=== PATIENT | female | born 1970 | race Caucasian/White ===

== ENCOUNTER → 2020-09-03 11:35 | Outpatient (CLI) | payer BC, SELFPAY ==
--- NOTE | ~2020-09-03 | XR_ITS ---
EXAMINATION: XR chest 2V EXAM DATE: 09/03/2020 11:57 INDICATION: Right lat rib pain x couple months after starting exercise. TECHNIQUE: Frontal and lateral projections of the chest obtained and reviewed. There is no prior almas dy for comparison. FINDINGS: The lungs are clear. There are no pleural effusions. The cardiomediastinal silhouette is within normal limits. There is no pneumothorax suspected. The bones and soft tissues are unremarkab le. IMPRESSION: No acute cardiopulmonary findings. Reviewed, dictated and finalized at location A. ORMAN
== END ==
PROVIDERS: PCP Internal Medicine; Visit Provider Clinical Nurse Specialist
DX: R07.81 Pleurodynia (principal)
CPT/HCPCS: 71046

== ENCOUNTER 2020-09-23 08:45 | Outpatient (CLI) | payer BC, SELFPAY ==
--- NOTE | ~2020-09-23 | US_ITS ---
US soft tissue upper back 09/23/2020 09:15 Indication: Right-sided rib pain for 2 months Procedure: Limited ultrasound of the right lateral chest Comparison: No prior studies for comparison. Findings: Normal heterogeneous soft tissues without evidence for mass. No fluid collections. Impression: 1: Normal limited ultrasound of the right chest soft tissues in the area of palpable concern. No disc rete mass or fluid collection. Reviewed, dictated and finalized at location B. RIOR DESIGN CONSULTANT Impression: 1: Normal limited ultrasound of the right chest soft tissues in the area of pal pable concern. No discrete mass or fluid collection.
== END 2020-09-23 08:46 | disposition home or self-care (01) ==
PROVIDERS: PCP Internal Medicine; Visit Provider Clinical Nurse Specialist
DX: R07.81 Pleurodynia (principal)
CPT/HCPCS: 76604

== ENCOUNTER → 2020-10-06 13:19 | Outpatient (CLI) | payer BC, SELFPAY ==
--- NOTE | ~2020-10-06 | CT_ITS ---
EXAMINATION: CT abdomen pelvis wo con DATE: 10/06/2020 13:42 INDICATION: Right lower rib pain. Pleurodynia. TECHNIQUE: Computed tomography (CT) of the abdomen and pelvis was performed without intravenous contr ast. Automated exposure control and iterative reconstruction technique were employed. The dose-length product was 1204.17 mGy-cm. COMPARISON: None. FINDINGS: The visualized portions of the lung bases demonstrate minimal atelectasis. No pleural effus ion. The heart size is normal. No pericardial effusion. There is a large sliding hiatal hernia. There is an 8 mm cyst in the liver. The gallbladder, spleen, pancreas, adrenal glands, and kidneys are nor mal. There is no urolithiasis. There are no dilated loops of bowel. The appendix is not visualized. T here are no pathologically enlarged lymph nodes. There is a 10.7 x 6.4 cm cystic mass in the right ad nexa. There is no free intraperitoneal fluid. There is mild thoracic spondylosis and moderate lumbar spondylosis. The included portions of the ribs are normal. IMPRESSION: 1. 10.7 cm cystic mass in the right adnexa, likely benign. Pelvis ultrasound is recommended. 2. Large sliding hiatal hernia. Reviewed, dictated and finalized at location A. HIC PRE PRESS TRADES WORKER
== END ==
PROVIDERS: PCP Internal Medicine; Visit Provider Clinical Nurse Specialist
DX: R07.81 Pleurodynia (principal); R19.09 Other intra-abdominal and pelvic swelling, mass and lump; K44.9 Diaphragmatic hernia without obstruction or gangrene
CPT/HCPCS: 74176

== ENCOUNTER → 2020-10-12 12:46 | Outpatient (CLI) | payer BC, SELFPAY ==
--- NOTE | ~2020-10-12 | US_ITS ---
EXAMINATION: US pelvic complete w TV DATE: 10/12/2020 13:16 INDICATION: Right adnexal cyst seen on CT. Comparison:No prior studies for comparison. TECHNIQUE: Multiple transabdominal and endovaginal sonographic images of the pelvis performed. FINDINGS: The uterus measures 6 x 4.1 x 3.5 cm. There are multiple small masses of the uterus measuri ng up to 1.9 cm, consistent with fibroids. There is a 1.7 cm nabothian cysts. The endometrial complex measures 3 mm. The right ovary measures 11.2 x 6.8 x 9.5 cm. There are right adnexal cysts which extend across the m idline, largest measuring 8.2 x 7.5 x 6.1 cm. The left ovary is not visualized. No free fluid in the pelvis. IMPRESSION: 1. Multiple large cysts centered in the right adnexa extending across the midline. Largest discrete c yst measures 8.2 x 7.5 x 6.1 cm. Differential diagnosis includes physiologic cysts, paraovarian/parat ubal cyst, peritoneal inclusion cyst, serous cystadenoma and cystadenocarcinoma. Reviewed, dictated and finalized at location A. ING MACHINE TENDER IMPRESSION: 1. Multiple large cysts centered in the right adnexa extending across the midli ne. Largest discrete cyst measures 8.2 x 7.5 x 6.1 cm. Differential diagnosis i ncludes physiologic cysts, paraovarian/paratubal cyst, peritoneal inclusion cys t, serous cystadenoma and cystadenocarcinoma.
== END ==
PROVIDERS: PCP Internal Medicine; Visit Provider Clinical Nurse Specialist
DX: N85.8 Other specified noninflammatory disorders of uterus (principal)
CPT/HCPCS: 76830; 76856

== ENCOUNTER 2020-11-16 00:25 | Outpatient (CLI) | payer BC, SELFPAY ==
[2020-11-16 18:26] LABS: SARS-CoV-2 RNA PCR Negative
== END 2020-11-16 00:26 | disposition home or self-care (01) ==
LOC: ANHCOVIDDT 00:25
PROVIDERS: PCP Internal Medicine; Visit Provider Student in an Organized Health Care Education/Training Program
DX: Z01.812 Encounter for preprocedural laboratory examination (principal); Z20.822 Contact with and (suspected) exposure to COVID-19
CPT/HCPCS: C9803; U0003; U0005

== ENCOUNTER 2020-11-16 09:43 | Outpatient (CLI) | payer BC, SELFPAY ==
--- NOTE | 2020-11-16 09:44 | ECG_ITS ---
Measurements Intervals Lucas Rate: 71 P: -21 AL: 157 QRS: 11 QRSD: 88 T: 10 QT: 420 QTc: 456 Interpretive Statements SINUS RHYTHM DELAYED PRECORDIAL R/S TRANSITION BORDERLINE ST-T WAVE ABNORMALITY- ANTEROLAT/INF LEADS BASELINE ARTIFACT- I, II, III, AVR, AVL, V6 BORDERLINE ECG Electronically Signed On 11-16-2020 10:18:16 [employer] by Austin Gonzales D.O.
[2020-11-16 10:13] LABS: Hematocrit 35.4 % (37.0-47.0); Hemoglobin 12.2 g/dL (12.0-15.0); Mean Corpuscular HGB Conc 34.5 g/dl (32-36); Mean Corpuscular Hemoglobin 30.1 pg (26-34); Mean Corpuscular Volume 87.4 fl (80-100); Mean Platelet Volume 10.6 fl (7.4-10.4); Platelet Count Result 328 k/mm3 (150-375); Red Blood Count 4.05 M/mm3 (4.2-5.4); Red Cell Distribution Width 12.7 % (11.5-14.5); White Blood Count 8.7 K/mm3 (4.5-10.0)
[2020-11-16 10:24] LABS: Anion Gap 7 mmol/L (8-16); Blood Urea Nitrogen 12 mg/dL (7-17); Calcium 8.3 mg/dL (8.4-10.2); Carbon Dioxide 28 mmol/L (22-30); Chloride 100 mmol/L (98-107); Estimated Glomerular Filt Rate > 60; Glucose 109 mg/dL (65-105); Potassium 3.4 mmol/L (3.4-5.0); Sodium 135 mmol/L (137-145)
== END 2020-11-16 09:44 | disposition home or self-care (01) ==
LOC: ANHSURGERY 09:44
PROVIDERS: Anesthesiology; PCP Internal Medicine; Visit Provider Student in an Organized Health Care Education/Training Program
DX: N85.2 Hypertrophy of uterus (principal); I10 Essential (primary) hypertension; Z01.818 Encounter for other preprocedural examination; R94.31 Abnormal electrocardiogram [ECG] [EKG]
CPT/HCPCS: 36415; 80048; 85027; 93005

== ENCOUNTER 2020-11-19 00:31 | Day surgery (SDC) | payer BC, SELFPAY ==
[2020-11-13 14:39] VITALS: BMI 40.3
--- NOTE | 2020-11-18 13:40 | P.PNAN_ITS ---
Anes - Initial Pre Proc Eval Procedure: Operation Date: 11/19/20 12:00 Proposed Procedures p Robotic Assisted Total Vaginal Hysterectomy, Left Salpingectomy, Right Oophorectomy - Mich Kaufman MD Date/Time: 11/18/20 13:40 Surgeon: Mich Kaufman MD Pre Op Diagnosis: enlarged uterus, fibroids, pain, rt ovarian cyst Patient Data Age: 50 Gender: F Height: 1.73 m Weight: 120.2 kg Allergies Allergy/AdvReac Type Severity Reaction Status Date / Time No Known Allergies Allergy Verified 11/19/20 10:07 Home Medications Medication Instructions Recorded Confirmed Type losartan 100 1 tablet PO DAILY #90 tablet 07/15/20 11/19/20 Rx mg-hydrochlorothiazide 25 mg tablet estradiol 1 mg-progesterone 100 mg 1 cap PO QPM 09/03/20 11/19/20 History capsule fluoxetine 20 mg capsule 20 mg PO DAILY #90 cap 10/09/20 11/19/20 Rx omeprazole 20 mg capsule,delayed 20 mg PO BID #180 cap 10/09/20 11/19/20 Rx release ibuprofen 600 mg PO TID 11/13/20 11/19/20 History Patient hx anesthesia problems: none Family hx anesthesia problems: none [facility] Past Medical History Medical History (Updated 11/18/20 @ 13:41 by Georgi Hansen MD) Anemia Depression Hypertension Morbid obesity with BMI of 40.0-44.9, adult Sleep apnea Uterine mass Surgical History Surgical History (Updated 11/21/19 @ 06:54 by Jaclyn Maldonado CMA) H/O eye surgery H/O tubal ligation 2004 History of endometrial ablation History of facial surgery Cheek surgery Family History Family History (Updated 11/20/19 @ 17:21 by Jaclyn Maldonado CMA) Father Malignant neoplasm of prostate Mother Carcinoma of colon Social History Social History Smoking status: Never smoker Alcohol intake: current Living arrangements: with family Gender identity (if verbalized by the patient): Female Spiritual care concerns: No Anes - Eval Final PreProcedure Day of Procedure 11/18/20 13:40 Patient weight: obese Heart: regular rate and rhythm Lungs: clear to auscultation and normal air movement Airway: Mallampati scale class II Neurological: alert and oriented Last oral intake: >/= 8 hours ASA classification: III Emergent: no Anesthetic plan: proceed Anesthesia type and monitoring: general ETT Informed Consent: The patient's anesthetic plan and its attendant risks and benefits were discussed with the patient/family/POA. Questions were solicited and answers provided to the satisfaction of the patient/family/POA.
[2020-11-19] VITALS (11 sets, daily range): BP systolic 141–174; BP diastolic 84–102; PULSE 70–92; RESP 10–20; TEMP 35.9–36.1; O2SAT 93–100; BMI 41.3
[2020-11-19] MEDS: ACETAMINOPHEN 500 MG TABLET 1000 MG PO (10:54)
[2020-11-19] MEDS: LACTATED RINGERS 1,000 ML 30 ML IV CONT ×3 (10:54→15:19)
[2020-11-19] MEDS: KETOROLAC 15 MG/ML VIAL (*BKC) IV PUSH (10:55)
[2020-11-19] MEDS: SCOPOLAMINE 1.5 MG PATCH TRANSDERM (11:01)
--- NOTE | 2020-11-19 11:26 | PM.IMHP ---
H&P: HPI History of Present Illness Date/Time: 11/19/20 11:26 Chief Complaint: pelvic pain ovarian cyst uterine fibroids Narrative: Lora Long is a 50 year old female who presents for robotic assisted TLH, left salpingectomy and RSO. Pt initially complained of right sided pelvic pain for 2-3 months. She attributed the pain to a pulled muscle from exercise. After several month without resolution, she presented to her PCP who ordered a CT scan. Imaging showed a large right ovarian cyst. Follow up pelvic US confirmed the cyst as well as uterine fibroids. pt has had an endometrial ablation in the past and denies any abnormal bleeding. Review of Systems Cardiovascular: Cardiovascular: Denies chest pain, Denies leg edema, Denies palpitations, Denies dyspnea and Denies dyspnea on exertion Respiratory: Respiratory: Denies cough, Denies dyspnea and Denies dyspnea on exertion Gastrointestinal: Gastrointestinal: Denies abdominal pain, Denies constipation, Denies diarrhea, Denies nausea and Denies vomiting Genitourinary: Genitourinary: Denies hematuria, Denies urinary frequency, Denies dysuria, Denies pelvic pain, Denies urinary incontinence and Denies vaginal discharge Neurologic: Reports system reviewed and no additional complaints, except as documented Psychiatric: Psychiatric: Reports no additional psychiatric complaints Endocrine: Endocrine: Denies palpitations PMFSH Past Medical History Medical History (Updated 11/19/20 @ 11:29 by Mich Kaufman MD) Anemia Depression Hypertension Morbid obesity with BMI of 40.0-44.9, adult Sleep apnea Uterine mass Surgical History Surgical History (Updated 11/21/19 @ 06:54 by Jaclyn Maldonado [facility]) H/O eye surgery H/O tubal ligation 2004 History of endometrial ablation History of facial surgery Cheek surgery Family History Family History (Updated 11/20/19 @ 17:21 by Jaclyn Maldonado CMA) Father Malignant neoplasm of prostate Mother Carcinoma of colon Social History Social History Smoking status: Never smoker Alcohol intake: current Living arrangements: with family Gender identity (if verbalized by the patient): Female Spiritual care concerns: No Meds Home Medications and Allergies Home Medications Medication Instructions Recorded Confirmed Type losartan 100 1 tablet PO DAILY #90 tablet 07/15/20 11/19/20 Rx mg-hydrochlorothiazide 25 mg tablet estradiol 1 mg-progesterone 100 mg 1 cap PO QPM 09/03/20 11/19/20 History capsule fluoxetine 20 mg capsule 20 mg PO DAILY #90 cap 10/09/20 11/19/20 Rx omeprazole 20 mg capsule,delayed 20 mg PO BID #180 cap 10/09/20 11/19/20 Rx release ibuprofen 600 mg PO TID 11/13/20 11/19/20 History Allergies Allergy/AdvReac Type Severity Reaction Status Date / Time No Known Allergies Allergy Verified 11/19/20 10:07 Vital Signs Vital Signs - 24 hr 11/19/20 11:04 Temperature 35.9 C L Pulse Rate 82 Respiratory Rate 20 Blood Pressure 141/98 H Pulse Oximetry 98 Exam Const: General: no acute distress Eyes: EOM: EOMs intact bilaterally Neck: Neck: supple Thyroid: thyroid normal Chest: Breast/axilla inspection: normal inspection of the breasts Breast/axilla palpation: normal palpation of the breasts, normal palpation of the axillae and no axillary lymphadenopathy Resp: Effort & Inspection: normal respiratory effort Auscultation: clear to auscultation bilaterally Cardio: Rate: regular rate Rhythm: regular rhythm GI: Inspection: non-distended GI Palp: Yes Soft to palpation, No Tenderness to palpation present (GI) and No Guarding due to palpation present (GI) Auscultation: normal bowel sounds : General: No bladder normal to palpation External Female Exam: normal external appearance Speculum Exam - Vagina: normal vaginal discharge and No vaginal bleeding Speculum Exam - Cervix: nontender Bimanual exam- vagina & uterus: No bladder normal to palpation and No Cervica
--- NOTE | 2020-11-19 11:32 | WPDHPUPDATE1 ---
History and Physical Update Update Date/Time: 11/19/20 11:32 History and Physical has been reviewed, including an updated exam of the patient. There are NO changes in the patient's condition. Risks, benefits, and alternatives have been discussed and questions answered. Patient agrees to proceed with procedure.
[2020-11-19] MEDS: ceFAZolin 3 GM/D5W 100 ML 100 ML IVPB (12:14)
[2020-11-19] MEDS: LIDO 1%/EPINEPHRINE 1:100,000 50 ML VIAL 30 ML INFILTRATE (13:12)
--- NOTE | 2020-11-19 13:54 | PM.PROC ---
Procedure Note - Detailed Date of procedure: 11/19/20 Pre-op diagnosis: enlarged uterus, fibroids, pain, rt ovarian cyst Procedure performed: Robotic assisted total laparoscopic hysterectomy,right salpingo-oophorectomy, left salpingectomy Description of procedure: PROCEDURE IN DETAIL: After the patient was appropriately consented she was taken to the operating room where she was transferred to the table in a dorsal supine position. General anesthesia was then induced with endotracheal intubation. The patient was transferred to a dorsal lithotomy position using adjustable yellow-fin stirrups. Her position was adjusted for appropriate support of her lower back and lower extremities. The patient was prepped and draped. A transurethral santos catheter was place. The cervix was sequentially dilated and a 6cm Cande II uterine manipulator placed in typical fashion about a 3.5 cm CISCO ring. Gloves were changed. After confirmation of a functioning orogastric tube, lidocaine was injected at Soriano's point in the LUQ and a 8 mm incision was made. A 5mm Optiview trocar was then inserted into the abdominal cavity under direct visualization and done so without complication. The abdomen was then insufflated with approximately 2-3L of CO2 establishing a pneumoperitoneum and the patient was placed in Trendelenburg position. Just above the umbilicus in the midline, a 8 mm incision made after injection of lidocaine and a 8 mm trocar advanced into the abdominal cavity under direct visualization without incident. We subsequently placed two robotic ports in a similar fashion, one in the left mid-quadrant and one in the right, 10cm lateral to the midline port. The robot was then docked. The Left round ligament was divided and the pararectal and paravesicle spaces developed, identifying the course of the ureter. The left fallopian tube was followed out to the fimbrae. The fallopian tube was then ligated along the inferior aspect of the mesosalpinx. The posterior aspect of the broad ligament was then skeletonized down to the level of the internal cervical os, mobilizing the ureter laterally. The bladder flap was then created sharply. The ipsilateral uterine artery was skeletonized, bipolar cauterized and transected. Attention was then turned to the right side. A large right ovarian cyst was noted and was positioned in the posterior cul de sac. This cyst was ruptured and the fluid was suctioned out. The fluid was clear. After deflating the cyts, the Right round ligament was divided and the pararectal and paravesicle spaces developed identifying the course of the ureter. The IP and ovarian vessels were identified and triple ligated away from the ureter. The broad ligament was further skeletonized down to the level of the internal cervical os, completing the bladder flap, and skeletonizing, ligating, and dividing the uterine artery on this side. We ensured the vaginal pneumo-occluder balloon was insufflated and made a circumferential colpotomy using monopolar current. The uterus, cervix, bilateral tubes and ovaries were then delivered transvaginally. I then re-approximated the colpotomy with a single interuppted 0-vicryl at the left apex and running #1 PDO Quill suture in 2 layers. Following this dissection, the abdomen and pelvis were copiously irrigated and all surgical sites found to be hemostatic. Skin sites were reapproximated with 4-0 Vicryl in a subcuticular fashion. Steri-Strips were placed. The patient tolerated the procedure well. Sponge, needle and instrument counts were correct x 2 and the patient was taken to recovery in stable condition. Ancef was given for antimicrobial prophylaxis. The patient had SCD's on for VTE prophylaxis during the entire procedure. Anesthesia: GETA Surgeon: Mich Kaufman MD Estimated blood loss (mL): 100 Drains: No Packing: No Pathology: yes (uterus, cervix, bilateral fallopian tubes, right Ovary ) Complications: No immediate complications Condition: stable
[2020-11-19] MEDS: fentaNYL CITRATE INJ (*CRX) 100 MCG/2 ML VIAL 25 MCG IV PUSH ×2 (15:34→15:39)
[2020-11-19] MEDS: ONDANSETRON INJ 4 MG/2 ML VIAL IV PUSH (16:13)
[2020-11-19] MEDS: HALOPERIDOL LACTATE 5 MG/ML VIAL 1 MG IV PUSH (16:44)
== END 2020-11-19 17:40 | disposition home or self-care (01) ==
PROVIDERS: PCP Internal Medicine; Visit Provider Student in an Organized Health Care Education/Training Program
PROC: (CPT 58571; principal; 2020-11-19 12:00)
DX: D25.9 Leiomyoma of uterus, unspecified (principal); N80.0 Endometriosis of uterus; N70.11 Chronic salpingitis; N73.6 Female pelvic peritoneal adhesions (postinfective); I10 Essential (primary) hypertension; G47.30 Sleep apnea, unspecified; D64.9 Anemia, unspecified; F32.9 Major depressive disorder, single episode, unspecified; E66.01 Morbid (severe) obesity due to excess calories; Z68.41 Body mass index [BMI] 40.0-44.9, adult
CPT/HCPCS: 58571; S2900; 36415; 80048; 85027; 86850; 86900; 86901; 88307; 93005; A9270; C9803; J0690; J1100; J1630; J1885; J2250; J2405; J2704; J3010; J7030; J7120; U0003; U0005

== ENCOUNTER 2020-12-12 11:03 | Emergency (ER) | payer BC, SELFPAY ==
[2020-12-12 11:15] VITALS: BP 147/99; PULSE 90; RESP 14; TEMP 36.9; O2SAT 99
--- NOTE | 2020-12-12 11:53 | ED.ABDPAIN ---
HPI - Abdominal Pain General Chief Complaint: Vaginal Bleeding Stated Complaint: vaginal bleeding, post hyst Time Seen by Provider: 12/12/20 11:25 Source: patient, RN notes reviewed and old records reviewed History of Present Illness HPI narrative: 50-year-old female presents to emergency department for vaginal bleeding. Patient states she woke up and noticed the blood on her sheets. Patient had a total hysterectomy late last month. She was seen by her STATEMENT REQUEST CLERK physician on Monday for similar vaginal bleeding. Reports some abdominal cramping. No nausea or vomiting. No urinary symptoms. No blood in stool. Related Data Home Medications Medication Instructions Recorded Confirmed ibuprofen 600 mg PO TID 11/13/20 11/19/20 conjugated estrogens [Premarin] mg 12/12/20 Allergies Allergy/AdvReac Type Severity Reaction Status Date / Time No Known Allergies Allergy Verified 12/12/20 11:23 Review of Systems Review of Systems: Narrative: CONSTITUTIONAL: Denies fever, chills, or sweats. EYES: Denies visual changes, redness, or discharge. ENT: Denies rhinorrhea, congestion, sore throat, or otalgia. CARDIOVASCULAR: Denies chest pain, palpitations, or edema. RESPIRATORY: Denies cough or dyspnea. GASTROINTESTINAL: Denies abdominal pain, nausea, vomiting, or diarrhea. GENITOURINARY: Denies dysuria or hematuria. SKIN: Denies rash or itching. MUSCULOSKELETAL: Denies back pain, joint pain, or myalgia. NEUROLOGIC: Denies headache, numbness, dizziness, or weakness. PSYCHIATRIC: Denies anxiety or depression. All systems reviewed & are unremarkable except as noted in HPI and below (ROS) [facility] Past Medical History Medical History Anemia Depression Hypertension Morbid obesity with BMI of 40.0-44.9, adult Sleep apnea Uterine mass Surgical History Surgical History H/O eye surgery H/O tubal ligation 2004 History of endometrial ablation History of facial surgery Cheek surgery Family History Family History Father Malignant neoplasm of prostate Mother Carcinoma of colon Social History Social History Smoking status: Never smoker Alcohol intake: current Gender identity (if verbalized by the patient): Female Spiritual care concerns: No Exam Narrative: Exam Narrative: GENERAL: Well-appearing, well-nourished, and in no acute distress. HEAD: Normocephalic, atraumatic. EYES: PERRLA and EOMI. ENT: Nares clear, no rhinorrhea or epistaxis. Mucous membranes moist. NECK: Supple. CHEST: Clear to auscultation. No respiratory distress. HEART: Regular rate and rhythm. No murmur heard. Normal peripheral pulses. ABDOMEN: Soft, nontender, nondistended, normal active bowel sounds. EXTREMITIES: Normal range of motion. No edema. : Pelvic exam showed dark red blood in vaginal vault, no active bleeding. SKIN: Warm, dry, no rash. NEURO: No focal deficits. Alert and oriented x3. PSYCH: Normal mood and affect. Course Course Emergency Course: 1400 -discussed case with physician on-call for Dr. Kaufman, follow-up on Monday at 8 AM in office. Counseled patient to return to emergency department at any time if she notes increased bleeding, worsening bleeding, or other concerns. Vital Signs Vital signs: Vital Signs Temperature 36.9 C 12/12/20 11:15 Pulse Rate 90 12/12/20 11:15 Respiratory Rate 14 12/12/20 11:15 Blood Pressure 147/99 H 12/12/20 11:15 Pulse Oximetry 99 12/12/20 11:15 Temperature 36.9 C 12/12/20 11:15 Pulse Rate 74 12/12/20 14:22 Respiratory Rate 18 12/12/20 14:22 Blood Pressure 148/92 H 12/12/20 14:22 Pulse Oximetry 96 12/12/20 14:22 MDM - Abdominal Pain Medical Records Attestation: I reviewed the patient's medical records. Lab Data Attestation: I reviewed the
[2020-12-12 12:02] LABS: Basophils Absolute Auto 0.1 K/mm3 (0.0-0.1); Basophils Percent Auto 0.8 % (0.2-1.2); Eosinophils Absolute Auto 1.5 K/mm3 (0-0.3); Eosinophils Percent Auto 14.2 % (0-4.4); Hemoglobin 12.4 g/dL (12.0-15.0); Immature Granulocyte Absolute 0.03 K/mm3 (0.00-0.031); Immature Granulocyte Percent A 0.3 % (0-0.5); Lymphocytes Absolute Auto 2.72 K/mm3 (0.9-3.2); Lymphocytes Percent Auto 26.7 % (18.3-44.2); Mean Corpuscular HGB Conc 33.5 g/dl (32-36); Mean Corpuscular Hemoglobin 29.2 pg (26-34); Mean Corpuscular Volume 87.1 fl (80-100); Mean Platelet Volume 9.9 fl (7.4-10.4); Monocytes Absolute Auto 0.6 K/mm3 (0.1-0.6); Monocytes Percent Auto 5.7 % (2.6-8.5); Neutrophils Absolute Auto 5.3 K/mm3 (1.3-6.7); Neutrophils Percent Auto 52.3 % (45.5-73.1); Platelet Count Result 333 k/mm3 (150-375); Red Blood Count 4.25 M/mm3 (4.2-5.4); Red Cell Distribution Width 12.9 % (11.5-14.5); White Blood Count 10.2 K/mm3 (4.5-10.0)
[2020-12-12] MEDS: KETOROLAC 15 MG/ML VIAL (*BKC) IV PUSH (12:02)
[2020-12-12 12:15] LABS: Alanine Aminotransferase 20 U/L (4-35); Albumin Level 4.3 g/dL (3.5-5.1); Alkaline Phosphatase 68 U/L (38-126); Anion Gap 8 mmol/L (8-16); Aspartate Amino Transferase 28 U/L (14-36); Bilirubin,Total 0.5 mg/dL (0.2-1.3); Blood Urea Nitrogen 14 mg/dL (7-17); Calcium 8.7 mg/dL (8.4-10.2); Carbon Dioxide 26 mmol/L (22-30); Chloride 104 mmol/L (98-107); Estimated CRCL calculation 133 ml/min; Estimated Glomerular Filt Rate > 60; Glucose 107 mg/dL (65-105); Potassium 3.7 mmol/L (3.4-5.0); Sodium 138 mmol/L (137-145)
[2020-12-12 12:24] LABS: Add Urine Microscopic? YES; Appearance Urine Cloudy (Clear); Bacteria Urine Trace /hpf; Bilirubin Urine Negative (Negative); Blood Urine 3+ (Negative); Color Urine Yellow (Yellow); Glucose Urine UA Negative (Negative); Ketones Urine Negative (Negative); Leukocyte Esterase Ur 2+ LEU/UL (Negative); Mucus Urine Rare /lpf; Nitrate Urine Negative (Negative); Protein Urine 1+ mg/dL (Negative); RBC Urine >75 /hpf (0-2); Specific Grav Ur 1.018 (1.001-1.035); Squamous Epithelial Cell Urine Occasional /hpf (Few); Urobilinogen Urine Negative mg/dL (<2.0); WBC Urine >75 /hpf
[2020-12-12 12:50] VITALS: BP 143/95; PULSE 70; RESP 18; O2SAT 96
[2020-12-12 14:22] VITALS: BP 148/92; PULSE 74; RESP 18; O2SAT 96
== END 2020-12-12 14:31 | disposition home or self-care (01) ==
PROVIDERS: Emergency Provider Emergency Medicine; PCP Internal Medicine
DX: N93.9 Abnormal uterine and vaginal bleeding, unspecified (principal); I10 Essential (primary) hypertension; G47.30 Sleep apnea, unspecified; E66.01 Morbid (severe) obesity due to excess calories; Z68.41 Body mass index [BMI] 40.0-44.9, adult; Z86.2 Personal history of diseases of the blood and blood-forming organs and certain disorders involving the immune mechanism
CPT/HCPCS: 36415; 80053; 81001; 85025; 87086; 96374; 99284; J1885

== ENCOUNTER 2020-12-15 10:19 | Observation (INO) | payer BC, SELFPAY ==
[2020-12-15] VITALS (25 sets, daily range): BP systolic 72–164; BP diastolic 45–110; PULSE 60–112; RESP 14–24; TEMP 36.4–36.8; O2SAT 94–100; BMI 41.3
--- NOTE | ~2020-12-15 | CT_ITS ---
EXAMINATION: CT abdomen pelvis w con DATE: 12/15/2020 12:46 INDICATION: Vaginal bleeding; status post hysterectomy 11/19/2020 TECHNIQUE: Computed tomography (CT) of the abdomen and pelvis was performed with 100 cc Omnipaque 350 intravenous contrast. Automated exposure control and iterative reconstruction technique were employe d. Exam dose: 1521.58 mGy-cm total exam DLP. COMPARISON: 10/06/2020 CT abdomen pelvis 10/12/2020 pelvic ultrasound FINDINGS: Minimal bilateral lower lobe atelectasis. Heart size is within normal range. No pericardial or pleural effusion. Moderately large sliding hiatal hernia. Diffuse hepatic steatosis. 7 mm probable cyst of the medial segment of the left hepatic lobe. The liver is otherwise unremarkabl e. The gallbladder is present. No gallbladder wall thickening or pericholecystic fluid or fat strandi ng. No bile duct or pancreatic duct dilatation. No pancreatic mass lesion or calcification. Normal splenic size. There is a focal discoid area of diminished attenuation along the medial aspect of the spleen which might represent a contained small subacute or old laceration or possibly infarct. Normal morphology of the adrenal glands. No renal mass lesion. No urinary tract calculus or hydroureteronephrosis. The urinary bladder is unre markable. Status post hysterectomy. There is minimal fat stranding and fluid in the pelvic area, likely postoperative change. No bowel obstruction, bowel wall thickening, pneumatosis or intraperitoneal free air is detected. Included skeletal structures are unremarkable. IMPRESSION: Status post hysterectomy Moderately large sliding hiatal hernia Diffuse hepatic steatosis Several millimeter probable left hepatic cyst Reviewed, dictated and finalized at [facility] Reviewed, dictated and finalized at [facility]. GENCY VETERINARY ASSISTANT
--- NOTE | 2020-12-15 11:19 | PC.NURSE ---
pt. start hyperventilating with blood draw; attempted to cricket coach pt. to slow respirations; pt.c/o nausea, legs feeling funny ; again tried to cricket coach pt. to slow breathing; pt. diaphoretic, pale, c/o she is going to pass out. Took VS, = episode of low BP; attempt to give pt. time to recover from probable vagal episode; pt. remains diaphoretic, denies feeling better. Due to pt.'s chief c/o taken to room; pt. to stretcher, first SBP = 130s; skin drying, color improving
[2020-12-15 11:23] LABS: Basophils Absolute Auto 0.1 K/mm3 (0.0-0.1); Basophils Percent Auto 0.6 % (0.2-1.2); Eosinophils Absolute Auto 1.4 K/mm3 (0-0.3); Eosinophils Percent Auto 11.6 % (0-4.4); Hematocrit 37.4 % (37.0-47.0); Hemoglobin 12.7 g/dL (12.0-15.0); Immature Granulocyte Absolute 0.02 K/mm3 (0.00-0.031); Immature Granulocyte Percent A 0.2 % (0-0.5); Lymphocytes Absolute Auto 3.13 K/mm3 (0.9-3.2); Lymphocytes Percent Auto 26.8 % (18.3-44.2); Mean Corpuscular Hemoglobin 29.5 pg (26-34); Mean Corpuscular Volume 86.8 fl (80-100); Mean Platelet Volume 9.6 fl (7.4-10.4); Monocytes Absolute Auto 0.6 K/mm3 (0.1-0.6); Monocytes Percent Auto 5.1 % (2.6-8.5); Neutrophils Absolute Auto 6.5 K/mm3 (1.3-6.7); Neutrophils Percent Auto 55.7 % (45.5-73.1); Platelet Count Result 320 k/mm3 (150-375); Red Blood Count 4.31 M/mm3 (4.2-5.4); Red Cell Distribution Width 12.8 % (11.5-14.5); White Blood Count 11.7 K/mm3 (4.5-10.0)
[2020-12-15 11:57] LABS: Beta HCG Quantitative < 2.39 mIU/ML
[2020-12-15 11:58] LABS: Anion Gap 10 mmol/L (8-16); Blood Urea Nitrogen 16 mg/dL (7-17); Calcium 8.5 mg/dL (8.4-10.2); Carbon Dioxide 24 mmol/L (22-30); Chloride 105 mmol/L (98-107); Estimated CRCL calculation 114 ml/min; Estimated Glomerular Filt Rate > 60; Glucose 110 mg/dL (65-105); Potassium 3.6 mmol/L (3.4-5.0); Sodium 139 mmol/L (137-145)
[2020-12-15] MEDS: SODIUM CHLORIDE 0.9% IV 1,000 ML 999 ML IV CONT (12:07)
--- NOTE | 2020-12-15 12:14 | ED.FEMALEGU ---
HPI - Female Genitourinary General Chief complaint: Vaginal Bleeding Stated complaint: vaginal bleeding/post hyst Time Seen by Provider: 12/15/20 11:18 History of Present Illness HPI Narrative: Patient is a 50-year-old female who presents ER with vaginal bleeding. Patient underwent a da Hernan robot hysterectomy where her right ovary with the cyst was removed as well as her uterus. This was performed by Dr. Kaufman. She had a normal 2-week follow-up appointment. 1 week ago patient began having some trace vaginal spotting. Speculum exam revealed a small area of clotted blood where there was a stitch in the vaginal cuff. Patient then had increased bleeding 3 days ago was seen in the ER with an unremarkable exam. She then had further bleeding few days ago and then followed up in clinic yesterday. She had some Monsel solution applied to the vaginal area to help with clotting. Patient then had lower pelvic burning and discomfort increasing throughout the evening. When she woke up this morning she started having large amounts of red blood running down her leg onto the floor. Patient has been lightheaded with positional change. Upon having her blood drawn here patient had decrease in her blood pressure down to the 70s. No loss consciousness. She has continued pelvic discomfort. No urinary symptoms. Related Data Home Medications Medication Instructions Recorded Confirmed ibuprofen 600 mg PO TID 11/13/20 11/19/20 conjugated estrogens [Premarin] mg 12/12/20 conjugated estrogens [Premarin] mg 12/15/20 metronidazole 12/15/20 oxycodone-acetaminophen 12/15/20 Allergies Allergy/AdvReac Type Severity Reaction Status Date / Time No Known Allergies Allergy Verified 12/12/20 11:23 Review of Systems Review of Systems: All systems reviewed & are unremarkable except as noted in HPI and below Gastrointestinal: Gastrointestinal: Reports abdominal pain, Denies nausea and Denies vomiting Genitourinary: Genitourinary: Reports abnormal vaginal bleeding, Denies dysuria and Denies urinary incontinence Neurologic: Reports syncope (Near syncope), Denies focal weakness and Denies numbness PMFSH Past Medical History Medical History (Updated 12/15/20 @ 14:39 by Wagner Roth MD) Anemia Depression Hypertension Morbid obesity with BMI of 40.0-44.9, adult Sleep apnea Uterine mass Surgical History Surgical History (Updated 12/15/20 @ 12:16 by Wagner Roth MD) H/O eye surgery H/O tubal ligation 2005 History of endometrial ablation History of facial surgery Cheek surgery History of partial hysterectomy Right ovary and uterus. Family History Family History Father Malignant neoplasm of prostate Mother Carcinoma of colon Social History Social History Smoking status: Never smoker Alcohol intake: current Gender identity (if verbalized by the patient): Female Spiritual care concerns: No Exam Narrative: Exam Narrative: GENERAL: Well-appearing, well-nourished, and in no acute distress. HEAD: Normocephalic, atraumatic. CHEST: Clear to auscultation. No respiratory distress. HEART: Regular rate and rhythm. Normal peripheral pulses. ABDOMEN: Soft, bilateral lower quadrant tenderness without guarding, nondistended. : External evaluation of the vagina reveals residual clot is approximately 3 inches x 1 inch in size. No active hemorrhage but bright red blood is noted. There is additional patient reporting tissue-like substance adhered to the vaginal wall. EXTREMITIES: Normal range of motion. No edema. SKIN: Warm, dry, no rash. NEURO: Alert and oriented x3. PSYCH: Normal mood and affect. Course Course Emergency Course: Seen by Dr. Kaufman. Admit for obs. Reevaluation(s) Reevaluation #1: Discussed with Dr. Mychal Kenney. Feels additional tissue seen on exam is remnant from medication application yesterda
--- NOTE | 2020-12-15 13:27 | PM.IMHP ---
H&P: HPI History of Present Illness Date/Time: 12/15/20 13:27 Chief Complaint: postoperative vaginal bleeding Narrative: Lora Long is a 50 year old female who presents to the ED With persistent postoperative bleeding. Patient underwent robotic hysterectomy on 11/11/20. Patient was seen in the office for several complaints of postoperative vaginal bleeding. No bleeding was noted on exam outpatient. Patient presented to the emergency room 3 days ago for similar complaint. Vital signs and hemoglobin levels were stable. No active bleeding was noted on exam. Patient was followed up in office in the vaginal cuff was cauterized with silver nitrate and Monsel solution. Patient states that throughout the night and this morning she continued to have bright red bleeding. She states the blood was enough to run down her leg. Patient states she will fill a pad through her underwear. Patient also complaining of some mild lower abdominal cramping. Review of Systems Review of Systems: All systems reviewed & are unremarkable except as noted in HPI and below PMFSH Past Medical History Medical History (Updated 12/15/20 @ 13:32 by Mich Kaufman MD) Anemia Depression Hypertension Morbid obesity with BMI of 40.0-44.9, adult Sleep apnea Uterine mass Surgical History Surgical History (Updated 12/15/20 @ 12:16 by Wagner Roth MD) H/O eye surgery H/O tubal ligation 2004 History of endometrial ablation History of facial surgery Cheek surgery History of partial hysterectomy Right ovary and uterus. Family History Family History Father Malignant neoplasm of prostate Mother Carcinoma of colon Social History Social History Smoking status: Never smoker Alcohol intake: current Gender identity (if verbalized by the patient): Female Spiritual care concerns: No Meds Home Medications and Allergies Home Medications Medication Instructions Recorded Confirmed Type losartan 100 1 tablet PO DAILY #90 tablet 07/15/20 11/19/20 Rx mg-hydrochlorothiazide 25 mg tablet fluoxetine 20 mg capsule 20 mg PO DAILY #90 cap 10/09/20 11/19/20 Rx omeprazole 20 mg capsule,delayed 20 mg PO BID #180 cap 10/09/20 11/19/20 Rx release ibuprofen 600 mg PO TID 11/13/20 11/19/20 History docusate sodium [Colace] 100 mg PO BID #30 cap 11/19/20 Rx ibuprofen 600 mg PO Q6H PRN #30 tablet 11/19/20 Rx conjugated estrogens [Premarin] mg 12/12/20 History Allergies Allergy/AdvReac Type Severity Reaction Status Date / Time No Known Allergies Allergy Verified 12/12/20 11:23 Vital Signs Vital Signs - 24 hr 12/15/20 10:51 12/15/20 11:04 Pulse Rate 112 H 60 Respiratory Rate 18 24 H Blood Pressure 148/105 H 72/45 L Pulse Oximetry 97 100 Exam Const: General: cooperative, healthy appearing, comfortable and no acute distress Resp: Effort & Inspection: normal respiratory effort and able to speak in complete sentences Cardio: Rate: regular rate GI: Inspection: normal to inspection GI Palp: No abdominal tenderness and Yes Soft to palpation : General: Yes deferred Skin: General skin exam: normal color Neuro: General: patient oriented x3 H&P: Results Labs Labs: Short CBC 12/15/20 Range/Units 11:15 WBC 11.7 H (4.5-10.0) K/mm3 Hgb 12.7 (12.0-15.0) g/dL Hct 37.4 (37.0-47.0) % Plt Count 320 (150-375) k/mm3 [facility] 12/15/20 11:15 Sodium 139 Potassium 3.6 Chloride 105 Carbon Dioxide 24 BUN 16 Creatinine 0.70 Glucose 110 H Calcium 8.5 Assessment and Plan Assessment and plan (1) Postoperative bleeding from incision: Status: Acute Assessment and Plan: Patient underwent robotic-assisted hysterectomy on 11/19/20 patient complains of persistent vaginal bleeding after hysterectomy. This is the patient's second trip to the emergency r
[2020-12-15] MEDS: SODIUM CHLORIDE 0.9% IV 1,000 ML 125 ML IV CONT ×2 (14:45→15:58)
--- NOTE | 2020-12-15 15:24 | ADMGEN ---
This patient, Lora Long, was admitted to Medical Room 258-01. Patient/family oriented to hospital policies and general routines including ID bracelet, bed and alarms, visiting hours, pain management, procedures, bathroom and other care routines, personal items, smoking policy, room service/diet, and visiting hours. Information on how to activate the Rapid Response Team has been discussed. Patient/Family are encouraged to report perceived risks to care and to ask questions if they do not understand what they are told or what they should do.
[2020-12-15] MEDS: HYDROcodone/acetaminophen (*CRX) 5-325 MG TABLET 1 TAB PO (15:58)
--- NOTE | 2020-12-15 16:47 | PC.NURSE ---
Called Dr. Mychal Kenney (clinical practitioner for Dr. Kaufman) and notified him that Lysteda is non-formulary. Orders received.
[2020-12-15] MEDS: ACETAMINOPHEN 325 MG TABLET 650 MG PO (18:50)
[2020-12-15] MEDS: TRANEXAMIC ACID 1,000MG/ISO100 1,000 MG/100 ML BAG 200 MG IVPB (18:53)
--- NOTE | 2020-12-15 19:15 | PC.NURSE ---
Called to room by patient - she stated she felt nauseated and thought she might pass out . On arrival to room, patient diaphoretic and flushed. Placed bed in trendelenberg and cold, wet washcloth to forehead. Patient proceeded to vomit large amounts of undigested food from dinner. VS obtained - HR 88, pulse ox 95% on room air, BP 148/110. After patient finished vomiting, patient stated she felt much better. Patient stated I think I started having heavy vaginal bleeding and that started it. Checked patient's ricardo pad - spotting noted on pad but no heavy bleeding noted. Patient became nauseated while Transexemic Acid and bag had just finished when we entered the room. Called Dr. Mychal Kenney (sharepoint application developer for Dr. Kaufman) and notified him of incident. Orders received to make patient NPO after midnight for possible procedure tomorrow. B/P meds ordered to be restarted in a.m.
[2020-12-15] MEDS: ZOLPIDEM TARTRATE (*CRX) 5 MG TABLET 10 MG PO (21:26)
[2020-12-16] VITALS: BP 143/88; PULSE 99; RESP 16; TEMP 36.4; O2SAT 95
[2020-12-16] MEDS: SODIUM CHLORIDE 0.9% IV 1,000 ML 125 ML IV CONT (00:27)
[2020-12-16 04:00] VITALS: BP 149/89; PULSE 92; RESP 18; TEMP 36.5; O2SAT 98
[2020-12-16 06:00] VITALS: BP 147/86; PULSE 80; RESP 18; TEMP 36.5; O2SAT 96
--- NOTE | 2020-12-16 07:54 | PM.GYNPNOP ---
AEROBICS INSTRUCTOR - A/P Assessment and plan (1) Vaginal bleeding: Code(s): N93.9 - Abnormal uterine and vaginal bleeding, unspecified Status: Acute Assessment and Plan: hospital day #1 for observation of postoperative vaginal bleeding pt denies any continued bleeding overnight pt reports dark brown discharge VSS, pt mildly hypertensive at baseline pt had episode of nausea after TXA, will continue to monitor, if pt has recurrent reaction to next dose will d/c continue TXA today pt very aprehensive about d/c home will consider d/c home on txa later today if she has no further bleeding Time Spent With Patient Time: Total time spent is greater than 50% in coordination of care (as documented) at patient's floor/unit and/or counseling patient: Time with patient: less than 15 minutes AEROBICS INSTRUCTOR- PN:Felice Post-Op Subjective Date/time seen: 12/16/20 07:54 Interval history: 50 yo female admitted for observation of postoperative vaginal bleeding after hysterectomy on 11/19/20. Pt overall doing well this AM. Pt reports she had an episode shortly after receiving her dose of tranexamic acid where she got nauseous and had an episode of emesis. She states that resolved after some time. She did not report any continued vaginal bleeding. Pt does report dark brown discharge. Subjective: patient reports feeling better Review of Systems Review of Systems: All systems reviewed & are unremarkable except as noted in HPI and below Exam Const: General: cooperative, healthy appearing, comfortable and no acute distress Eyes: General: appearance normal, both eyes and all related structures Neck: Neck: normal visual inspection Resp: Effort & Inspection: normal respiratory effort Cardio: Rate: regular rate GI: Inspection: normal to inspection GI Palp: Yes Soft to palpation AEROBICS INSTRUCTOR - PN: Obj Data Vital Signs Vital Signs: Vital Signs - 24 hr 12/15/20 10:51 12/15/20 11:04 12/15/20 12:11 Temperature Pulse Rate 112 H 60 78 Respiratory Rate 18 24 H 17 Blood Pressure 148/105 H 72/45 L Pulse Oximetry 97 100 98 12/15/20 12:15 12/15/20 12:16 12/15/20 12:30 Temperature 36.8 C Pulse Rate 80 80 84 Respiratory Rate 17 16 15 Blood Pressure 148/100 H 151/93 H Pulse Oximetry 98 97 100 12/15/20 12:31 12/15/20 12:54 12/15/20 13:00 Temperature Pulse Rate 88 94 81 Respiratory Rate 21 H 19 24 H Blood Pressure 164/102 H Pulse Oximetry 94 100 100 12/15/20 13:15 12/15/20 13:36 12/15/20 13:46 Temperature Pulse Rate 87 88 92 Respiratory Rate 19 17 16 Blood Pressure Pulse Oximetry 99 100 98 12/15/20 13:49 12/15/20 14:00 12/15/20 14:01 Temperature Pulse Rate 89 87 88 Respiratory Rate 20 18 16 Blood Pressure 146/106 H 142/102 H Pulse Oximetry 98 98 12/15/20 14:12 12/15/20 14:14 12/15/20 14:17 Temperature Pulse Rate 93 107 H 112 H Respiratory Rate Blood Pressure 154/103 H 148/105 H 142/108 H Pulse Oximetry 12/15/20 14:29 12/15/20 14:30 12/15/20 14:31 Temperature Pulse Rate 86 86 89 Respiratory Rate 15 14 17 Blood Pressure 138/101 H Pulse Oximetry 98 98 98 12/15/20 14:32 12/15/20 15:30 12/15/20 19:15 Temperature 36.4 C L Pulse Rate 88 89 88 Respiratory Rate 17 16 Blood Pressure 144/84 H 148/110 H Pulse Oximetry 98 99 95 12/15/20 20:00 12/16/20 00:00 Temperature 36.4 C Pulse Rate 88 99 Respiratory Rate 16 16 Blood Pressure 143/88 H Pulse Oximetry 95 95 Intake/Output Intake/Output: Intake & Output 12/13/20 12/14/20 12/15/20 12/16/20 23:59 23:59 23:59 23:59 Intake Total 2898 642 Output Total 900 Balance 1998 642 Meds/Results Medications: Active Medications Generic Name Dose Route Start Last Admin Trade Name Freq PRN Reason Stop Dose Admin Acetaminophen 650 mg 12/15/20 13:14 12/15/20 18:50 Acetaminophen 325 Mg Tablet PO 650 mg Q4H PRN Administration Mild Pain (1-3) or Fever Hydrocodone Bitart/Acetaminophen 1 tab 12/15/20 13
[2020-12-16] MEDS: LOSARTAN POTASSIUM 100 MG TABLET PO (08:16)
[2020-12-16] MEDS: hydroCHLOROthiazide 25 MG TABLET PO (08:16)
[2020-12-16] MEDS: ACETAMINOPHEN 325 MG TABLET 650 MG PO (10:56)
--- NOTE | 2020-12-16 12:13 | PM.DS ---
DS: Admitting Diagnosis Admitting Diagnosis Admitting Diagnosis: Postoperative vaginal bleeding DS: Summary Hospital Course Hospital Course: 50 yo female admitted for observation for postoperative vaginal bleeding after robotic hysterectomy on 11/19/20. Pt had persistent vaginal bleeding postoperatively. She was seen in the ED and outpatient twice. The vaginal cuff was cauterized with silver nitrate and Monsel's solution. Pt then presented to the ED with another episode of vaginal bleeding. While in the hospitalt he patient has had no further vaginal bleeding. She does report some dark brown vaginal discharge but states it is minimal. Pt did receive one dose of IV tranexamic acid. Pt reports nausea after administration. Status at Discharge Functional status at discharge: independent ambulation Overall status at discharge: patient is back to baseline Time Spent with Patient Time attestation: Total time spent providing and/or coordinating discharge services: Time spent: Less than 30 minutes DS: Data Data Completed and Pending Labs on day of discharge: Labs from last 24 hours 12/15/20 11:15 Blood Type O Positive Antibody Screen Negative Discharge Plan Discharge Discharging Clinician: doron Patient Disposition: Home, Self-Care Activity: as tolerated and pelvic rest Diet: regular Patient Instructions: Antibiotic Form Stand Alone Forms: General Discharge Information Follow-up/Referrals: Mich Kaufman MD [Primary Care Provider] - 2 Weeks Discharge Medications: New ondansetron HCl [Zofran] 4 mg tablet 4 mg PO Q8H PRN (Reason: nausea and vomiting) Qty: 20 RF: 0 tranexamic acid 650 mg tablet 1,300 mg PO TID Qty: 24 RF: 0 Continued ibuprofen 600 mg tablet 600 mg PO Q6H PRN (Reason: pain) Qty: 30 RF: 0 metronidazole 500 mg tablet 500 mg PO BID RF: 0 omeprazole 20 mg capsule,delayed release(DR/EC) 20 mg PO DAILY RF: 0 Premarin 0.3 mg tablet 0.3 mg PO HS RF: 0 losartan-hydrochlorothiazide 100-25 mg tablet 1 tablet PO DAILY Qty: 90 RF: 1 fluoxetine 20 mg capsule 20 mg PO DAILY Qty: 90 RF: 1 Date of admission: 12/15/20 13:15 Primary Care Provider: Mich Kaufman Admitting Provider: Mich Kaufman Attending physician on admission: Mich Kaufman Condition: Stable
== END 2020-12-16 13:19 | disposition home or self-care (01) ==
LOC: ANHED 11:35 → ANH2MED 13:56
PROVIDERS: Emergency Medicine; Admitting Provider Student in an Organized Health Care Education/Training Program; Emergency Provider Emergency Medicine; PCP Student in an Organized Health Care Education/Training Program; Visit Provider Student in an Organized Health Care Education/Training Program
DX: N93.8 Other specified abnormal uterine and vaginal bleeding (principal); Z90.710 Acquired absence of both cervix and uterus; I10 Essential (primary) hypertension; E66.01 Morbid (severe) obesity due to excess calories; Z68.41 Body mass index [BMI] 40.0-44.9, adult
CPT/HCPCS: 36415; 74177; 80048; 84702; 85025; 86850; 86900; 86901; 96361; 96365; 99285; A9270; G0378; J7030; Q9967

== ENCOUNTER 2021-03-28 11:17 | Emergency (ER) | payer BC, SELFPAY ==
--- NOTE | ~2021-03-28 | XR_ITS ---
EXAMINATION: XR humerus RT, XR elbow RT min 3V EXAM DATE: 03/28/2021 12:13 INDICATION: Initial encounter following injury, with pain of the right elbow, humerus. TECHNIQUE: Right elbow frontal, lateral with flexion, and oblique projections obtained and reviewed. Orthogonal projections right humerus. There are no prior studies for comparison. FINDINGS: Right elbow anterior humeral line intact. There is acute closed posttraumatic nondisplace d fracture through the right ulnar coronoid process. There is an elbow joint hemarthrosis. The humeru s is unremarkable. Radial head unremarkable. IMPRESSION: Acute nondisplaced ulnar coronoid fracture. Hemarthrosis. Reviewed, dictated and finalized at [facility]. IMPRESSION: Acute nondisplaced ulnar coronoid fracture. Hemarthrosis.
[2021-03-28 11:23] VITALS: BP 187/111; PULSE 91; RESP 18; TEMP 36.6; O2SAT 99
--- NOTE | 2021-03-28 12:09 | ED.UPPEXIN ---
HPI - Extremity Injury (Upper) General Chief Complaint: Extremity Injury, Upper Stated Complaint: fall with elbow injury Time Seen by Provider: 03/28/21 11:54 Source: patient Mode of arrival: ambulatory Limitations: no limitations History of Present Illness HPI narrative: Patient is a 50-year-old female who presents complaining of right elbow pain. Patient reports coming out of hotel in [place] this a.m., tripping and falling landing on right elbow. She reports pain to right elbow and upper arm. She reports increased pain with range of motion. No visible deformity noted. Patient reports taking 800 mg of ibuprofen prior to arrival with moderate relief. Ice in place at this time. Swelling noted. Patient denies numbness or tingling to her fingertips. She denies other injuries from fall. MD complaint: injury to: right and elbow Related Data Home Medications Medication Instructions Recorded Confirmed Premarin 0.3 mg PO HS 12/12/20 01/04/21 omeprazole 20 mg PO DAILY 12/15/20 01/04/21 Allergies Allergy/AdvReac Type Severity Reaction Status Date / Time No Known Allergies Allergy Verified 03/28/21 11:29 Review of Systems Review of Systems: Narrative: CONSTITUTIONAL: Denies fever, chills, or sweats. EYES: Denies visual changes, redness, or discharge. ENT: Denies rhinorrhea, congestion, sore throat, or otalgia. CARDIOVASCULAR: Denies chest pain, palpitations, or edema. RESPIRATORY: Denies cough or dyspnea. GASTROINTESTINAL: Denies abdominal pain, nausea, vomiting, or diarrhea. GENITOURINARY: Denies dysuria or hematuria. SKIN: Denies rash or itching. MUSCULOSKELETAL: Right elbow pain NEUROLOGIC: Denies headache, numbness, dizziness, or weakness. PSYCHIATRIC: Denies anxiety or depression. [facility] Past Medical History Medical History Anemia Depression Hypertension Morbid obesity with BMI of 40.0-44.9, adult Sleep apnea Uterine mass Surgical History Surgical History H/O eye surgery H/O tubal ligation 2004 History of endometrial ablation History of facial surgery Cheek surgery History of partial hysterectomy Right ovary and uterus. Family History Family History Father Malignant neoplasm of prostate Bradycardia Mother Carcinoma of colon Hypertension Social History Social History Smoking status: Never smoker Second hand tobacco smoke exposure: Yes ( quit over 10 years ago) Alcohol intake: current Drinks per week: 4 Substance use: never Substance use type: does not use Gender identity (if verbalized by the patient): Female Spiritual care concerns: No Comments At the time of signature, I have reviewed and agree with nursing past medical, surgical, social, and family history unless otherwise noted. Please see nursing chart for further information. There is no relevant family history pertinent to the presenting complaint. Exam Narrative: Exam Narrative: GENERAL: Well-appearing, well-nourished, and in no acute distress. HEAD: Normocephalic, atraumatic. EYES: EOMI. No redness or drainage. Conjunctiva are normal. ENT: Mucous membranes pink and moist. CHEST: No respiratory distress. HEART: Regular rate and rhythm. No murmur appreciated. Normal peripheral pulses. EXTREMITIES: Edema to right elbow, positive radial pulse, distal sensation intact, good capillary refill SKIN: Warm, dry, no rash. NEURO: No focal deficits. Alert and oriented x3. Gait steady. PSYCH: Normal affect. No signs of depression or anxiety. Course Consultations Consultation #1: Dr. Fletcher contacted at this time. He requests patient to be put in long arm splint at 90 degrees and follow up with his office in the am. Vital Signs Vital signs: Vital Signs Temperature 36.6 C 03/28/21 11
== END 2021-03-28 13:49 | disposition home or self-care (01) ==
PROVIDERS: Emergency Provider Nurse Practitioner; PCP Internal Medicine
DX: S52.044A Nondisplaced fracture of coronoid process of right ulna, initial encounter for closed fracture (principal); Z86.2 Personal history of diseases of the blood and blood-forming organs and certain disorders involving the immune mechanism; F32.9 Major depressive disorder, single episode, unspecified; I10 Essential (primary) hypertension; E66.01 Morbid (severe) obesity due to excess calories; Z68.41 Body mass index [BMI] 40.0-44.9, adult; Z77.22 Contact with and (suspected) exposure to environmental tobacco smoke (acute) (chronic); W01.0XXA Fall on same level from slipping, tripping and stumbling without subsequent striking against object, initial encounter
CPT/HCPCS: 29125; 73060; 73080; 99284

== ENCOUNTER 2021-08-25 08:00 | Outpatient (CLI) | payer BC, SELFPAY ==
--- NOTE | ~2021-08-25 | MR_ITS ---
EXAMINATION: MR thoracic spine wo con EXAM DATE: 08/25/2021 09:00 INDICATION: Ongoing right sided back/flank pain for a year. Patient had ultrasound right chest tank calibrator ior soft tissue region of concern in September. TECHNIQUE: Multi-sequential, multiplanar MR images of the thoracic spine were obtained without contra st. Sagittal T1, T2, T2 fat saturation, axial T2 weighted images reviewed. There is no prior study for comparison. FINDINGS: The spinal cord signal intensity and intrinsic morphology is normal. The vertebral bodies a re aligned in the AP dimension. Vertebral body and disc heights are well-maintained. There are no kam picious marrow signal abnormalities. Unremarkable posteromedial subcutaneous fat and paraspinal musculature. Paraspinal soft tissue is unr emarkable. Mild thoracic facet arthropathy. Thoracic central canal and neural foramen are widely mckeon nt. There is moderate sized sliding gastroesophageal hiatal hernia. IMPRESSION: 1. Mild thoracic facet arthropathy. 2. Moderate-sized hiatal hernia. Reviewed, dictated and finalized at [facility].
== END 2021-08-25 08:01 | disposition home or self-care (01) ==
PROVIDERS: PCP Internal Medicine; Visit Provider Clinical Nurse Specialist
DX: K44.9 Diaphragmatic hernia without obstruction or gangrene (principal); M47.814 Spondylosis without myelopathy or radiculopathy, thoracic region
CPT/HCPCS: 72146

== ENCOUNTER → 2021-11-16 02:26 | Outpatient (CLI) | payer BC, SELFPAY ==
[2021-11-16 13:36] LABS: SARS-CoV-2 RNA PCR Negative
== END ==
PROVIDERS: PCP Internal Medicine; Visit Provider Internal Medicine Gastroenterology
DX: Z01.812 Encounter for preprocedural laboratory examination (principal); Z20.822 Contact with and (suspected) exposure to COVID-19
CPT/HCPCS: C9803; U0003; U0005

== ENCOUNTER 2021-11-19 00:14 | Day surgery (SDC) | payer BC, SELFPAY ==
[2021-11-09 14:01] VITALS: BMI 41.1
[2021-11-19 08:55] VITALS: BP 144/91; PULSE 95; RESP 20; TEMP 36.4; O2SAT 98; BMI 41.0
[2021-11-19] MEDS: LACTATED RINGERS 1,000 ML 150 ML IV CONT (09:03)
--- NOTE | 2021-11-19 09:15 | WPDANESEPPF ---
Anes - Initial Pre Proc Eval Procedure: Operation Date: 11/19/21 09:30 Proposed Procedures p Screening Colonoscopy - Edgar Lucero MD Date/Time: 11/19/21 09:15 Surgeon: Edgar Lucero MD Pre Op Diagnosis: neoplasm screening Patient Data Age: 51 Gender: F Height: 1.73 m Weight: 122.4 kg Last Vital Signs Temp 36.4 C 11/19/21 08:55 Pulse 95 11/19/21 08:55 Resp 20 11/19/21 08:55 BP 144/91 H 11/19/21 08:55 Pulse Ox 98 11/19/21 08:55 Allergies Allergy/AdvReac Type Severity Reaction Status Date / Time No Known Allergies Allergy Verified 11/19/21 08:54 Home Medications Medication Instructions Recorded Confirmed Type ibuprofen 600 mg PO Q6H PRN #30 tablet 11/19/20 11/09/21 Rx estradiol 0.5 mg tablet 0.5 mg PO DAILY 07/15/21 11/09/21 History amlodipine 5 mg tablet 5 mg PO DAILY #90 tablet 07/19/21 11/09/21 Rx fluoxetine 20 mg capsule 20 mg PO DAILY #90 cap 07/19/21 11/09/21 Rx losartan 100 1 tablet PO DAILY #90 tablet 07/19/21 11/09/21 Rx mg-hydrochlorothiazide 25 mg tablet omeprazole 20 mg capsule,delayed 20 mg PO DAILY #180 cap 10/25/21 11/09/21 Rx release Patient hx anesthesia problems: post op nausea/vomiting Family hx anesthesia problems: none Results Review: All pre-operative results and documents have been reviewed as part of the pre-operative evaluation. [facility] Past Medical History Medical History Anemia Depression History of adverse reaction to anesthesia Nausea History of postoperative complication of surgical procedure Hysterectomy Hypertension Morbid obesity with BMI of 40.0-44.9, adult JODIE (obstructive sleep apnea) Sleep apnea Uterine mass Surgical History Surgical History H/O eye surgery H/O tubal ligation 2004 History of endometrial ablation History of facial surgery Cheek surgery History of partial hysterectomy Right ovary and uterus. Family History Family History Father Malignant neoplasm of prostate Bradycardia Mother Carcinoma of colon Hypertension Social History Social History Smoking status: Never smoker Second hand tobacco smoke exposure: Yes ( quit over 10 years ago) Alcohol intake: current Drinks per week: 4 Substance use: never Substance use type: does not use Living arrangements: with family Gender identity (if verbalized by the patient): Female Spiritual care concerns: No Anes - Eval Final PreProcedure Day of Procedure 11/19/21 09:15 Patient weight: morbidly obese Heart: regular rate and rhythm Lungs: clear to auscultation Airway: Mallampati scale class II Neurological: alert and oriented Last oral intake: >/= 8 hours ASA classification: III Emergent: no Anesthetic plan: proceed Anesthesia type and monitoring: general GIVS and standard monitoring Results Review: All pre-operative results and documents have been reviewed as part of the pre-operative evaluation. Informed Consent: The patient's anesthetic plan and its attendant risks and benefits were discussed with the patient/family/POA. Questions were solicited and answers provided to the satisfaction of the patient/family/POA.
--- NOTE | 2021-11-19 09:27 | WPDGICN ---
Assessment and Plan Assessment and plan (1) Family history of colon cancer in mother: Code(s): Z80.0 - Family history of malignant neoplasm of digestive organs Status: Acute Assessment and Plan: Patient's mother, grandmother and great grandmother have had colon cancer. Plan for surveillance colonoscopy now and at frequent intervals in the future. Further recommendations will be given after endoscopy. GI Consult Note Consult date/time: 11/19/21 09:27 HPI: Lora Long is a 51 year old female Presents for screening colonoscopy. Current weight appetite and bowel movements are normal. She denies abdominal pain. She has had no bleeding. Family history is significant her mother had colon cancer at age 43. Her grandmother and great grandmother also had colon cancer. She presents today for screening exam. Review of Systems Review of Systems: All systems reviewed & are unremarkable except as noted in HPI and below PMFSH Past Medical History Medical History Anemia Depression History of adverse reaction to anesthesia Nausea History of postoperative complication of surgical procedure Hysterectomy Hypertension Morbid obesity with BMI of 40.0-44.9, adult JODIE (obstructive sleep apnea) Sleep apnea Uterine mass Surgical History Surgical History H/O eye surgery H/O tubal ligation 2004 History of endometrial ablation History of facial surgery Cheek surgery History of partial hysterectomy Right ovary and uterus. Family History Family History Father Malignant neoplasm of prostate Bradycardia Mother Carcinoma of colon Hypertension Social History Social History Smoking status: Never smoker Second hand tobacco smoke exposure: Yes ( quit over 10 years ago) Alcohol intake: current Drinks per week: 4 Substance use: never Substance use type: does not use Living arrangements: with family Gender identity (if verbalized by the patient): Female Spiritual care concerns: No Meds Home Medications and Allergies Home Medications Medication Instructions Recorded Confirmed Type ibuprofen 600 mg PO Q6H PRN #30 tablet 11/19/20 11/09/21 Rx estradiol 0.5 mg tablet 0.5 mg PO DAILY 07/15/21 11/09/21 History amlodipine 5 mg tablet 5 mg PO DAILY #90 tablet 07/19/21 11/09/21 Rx fluoxetine 20 mg capsule 20 mg PO DAILY #90 cap 07/19/21 11/09/21 Rx losartan 100 1 tablet PO DAILY #90 tablet 07/19/21 11/09/21 Rx mg-hydrochlorothiazide 25 mg tablet omeprazole 20 mg capsule,delayed 20 mg PO DAILY #180 cap 10/25/21 11/09/21 Rx release Allergies Allergy/AdvReac Type Severity Reaction Status Date / Time No Known Allergies Allergy Verified 11/19/21 08:54 Vital Signs Vital Signs - 24 hr 11/19/21 08:55 Temperature 97.6 F Pulse Rate 95 Respiratory Rate 20 Blood Pressure 144/91 H Pulse Oximetry 98 Exam Narrative: Physical exam reveals patient be alert. Vital signs stable. HEENT exam is unremarkable. Patient is anicteric. Lungs are clear to auscultation and percussion. Heart is without murmur or extra sounds. Abdominal exam bowel sounds are present soft nontender with no hepatosplenomegaly. Digital external rectal exam is normal.
[2021-11-19 09:59] VITALS: BP 121/81; PULSE 88; RESP 31; O2SAT 97
[2021-11-19 10:09] VITALS: BP 124/87; PULSE 85; RESP 23; O2SAT 97
[2021-11-19 10:19] VITALS: BP 138/95; PULSE 72; RESP 11; O2SAT 99
== END 2021-11-19 10:30 | disposition home or self-care (01) ==
PROVIDERS: PCP Internal Medicine; Visit Provider Internal Medicine Gastroenterology
PROC: 0DJD8ZZ Inspection of Lower Intestinal Tract, Via Natural or Artificial Opening Endoscopic (ICD-10-PCS; CPT 45378; principal; 2021-11-19 09:30)
DX: Z12.11 Encounter for screening for malignant neoplasm of colon (principal); K64.8 Other hemorrhoids; Z80.0 Family history of malignant neoplasm of digestive organs; D64.9 Anemia, unspecified; I10 Essential (primary) hypertension; G47.33 Obstructive sleep apnea (adult) (pediatric); F32.9 Major depressive disorder, single episode, unspecified
CPT/HCPCS: 45378; C9803; J2704; J7120; U0003; U0005

== ENCOUNTER 2022-07-11 09:16 | Emergency (ER) | payer BC, SELFPAY ==
[2022-07-11 09:21] VITALS: BP 137/95; PULSE 109; RESP 16; TEMP 38.7; O2SAT 100
--- NOTE | 2022-07-11 09:23 | ED.URI ---
HPI - URI/Sore Throat General Chief Complaint: Upper Respiratory Infection Stated Complaint: fever, chills, cough, sore throat, fatigue Time Seen by Provider: 07/11/22 09:33 Source: patient and RN notes reviewed Mode of arrival: ambulatory Limitations: no limitations History of Present Illness HPI Narrative: 51-year-old female presents with concern for fever, chills, cough, sore throat, fatigue. Reports she was recently traveling in [facility] and flew on an airplane. She reports her had a sore throat, he is not seen. She reports taking Tylenol and ibuprofen. MD elicited complaint: fever and sore throat Related Data Home Medications Medication Instructions Recorded Confirmed ferrous sulfate 325 mg (65 mg 325 mg PO DAILY 04/05/22 07/11/22 iron) tablet Allergies Allergy/AdvReac Type Severity Reaction Status Date / Time No Known Allergies Allergy Verified 07/11/22 09:34 Review of Systems Review of Systems: CONSTITUTIONAL: Reports malaise, chills, fever, fatigue EYES: Denies visual changes, redness, or discharge. ENT: Denies rhinorrhea, congestion, sinus pain, otalgia. Reports sore throat. CARDIOVASCULAR: Denies chest pain, palpitations, or edema. RESPIRATORY: Reports cough. Denies dyspnea. GASTROINTESTINAL: Denies abdominal pain, nausea, vomiting, diarrhea SKIN: Denies rash or itching. MUSCULOSKELETAL: Reports myalgia. NEUROLOGIC: Denies headache. All systems reviewed & are unremarkable except as noted in HPI and below PMFSH Past Medical History Medical History Anemia Depression History of adverse reaction to anesthesia Nausea History of postoperative complication of surgical procedure Hysterectomy Hypertension Morbid obesity with BMI of 40.0-44.9, adult JODIE (obstructive sleep apnea) Sleep apnea Uterine mass Surgical History Surgical History H/O eye surgery H/O tubal ligation 2004 History of endometrial ablation History of facial surgery Cheek surgery History of partial hysterectomy Right ovary and uterus. Family History Family History Father Malignant neoplasm of prostate Bradycardia Mother Carcinoma of colon Hypertension Social History Social History Smoking status: Never smoker Second hand tobacco smoke exposure: Yes ( quit over 10 years ago) Alcohol intake: current Drinks per week: 4 Substance use: never Substance use type: does not use Gender identity (if verbalized by the patient): Female Spiritual care concerns: No Comments At time of signature, agree with nursing past medical, surgical, social and family history. There is no relevant family history pertinent to the presenting complaint Exam Narrative: GENERAL: Nontoxic appearingand in no acute distress. HEAD: Normocephalic EYES: PERRLA, conjunctivae clear ENT: Nares clear. Mucous membranes moist. TM pearly jimenez with sharp light reflex bilaterally; no tragal tenderness. Oropharynx erythematous without lesions. Tonsils enlarged and without exudate, no drooling, no hoarseness, no trismus, uvula midline. NECK: Supple. No lymphadenopathy CHEST: Clear to auscultation, breath sounds equal. No wheezing, rhonchi, rales, or stridor. No respiratory distress, speaks in full sentences. HEART: Regular rate and rhythm. No murmur heard. SKIN: Warm, dry, no rash. NEURO: Alert and oriented x3. PSYCH: Normal mood and affect Course Course Emergency Course: Patient is aware of diagnosis, understands and agrees to treatment plan. Anticipatory guidance given. Patient agrees to follow-up as directed and is aware of reasons to seek care at the emergency department. Portions of this record may have been created with voice recognition software Level of Care: Express Care Visit Vital
== END 2022-07-11 10:17 | disposition home or self-care (01) ==
PROVIDERS: Emergency Provider Nurse Practitioner; PCP Clinical Nurse Specialist
DX: J03.90 Acute tonsillitis, unspecified (principal); Z20.822 Contact with and (suspected) exposure to COVID-19; D64.9 Anemia, unspecified; I10 Essential (primary) hypertension; E66.01 Morbid (severe) obesity due to excess calories; Z68.38 Body mass index [BMI] 38.0-38.9, adult; G47.33 Obstructive sleep apnea (adult) (pediatric); F32.A Depression, unspecified
CPT/HCPCS: 87081; 87426; 87804; 87880; 99213; C9803; G0463

== ENCOUNTER 2022-07-24 11:45 | Emergency (ER) | payer BC, SELFPAY ==
[2022-07-24 11:49] VITALS: BP 131/96; PULSE 98; RESP 16; TEMP 36.6; O2SAT 98
--- NOTE | 2022-07-24 11:49 | ED.FEMALEGU ---
HPI - Female Genitourinary General Chief complaint: Urogenital-Female Stated complaint: UTI SYMPTOMS Time Seen by Provider: 07/24/22 12:01 Source: patient and RN notes reviewed Mode of arrival: ambulatory Limitations: no limitations History of Present Illness HPI Narrative: 51-year-old female presents concern for urinary tract infection. She reports 2-day history of urine frequency, urgency, burning. She reports mild left lower suprapubic pressure. She denies fever, body aches, chills, sweats, new back pain, nausea, vomiting. Reports possible hematuria at the start of her symptoms. MD elicited complaint: UTI Related Data Home Medications Medication Instructions Recorded Confirmed ferrous sulfate 325 mg (65 mg 325 mg PO DAILY 04/05/22 07/11/22 iron) tablet Allergies Allergy/AdvReac Type Severity Reaction Status Date / Time No Known Allergies Allergy Verified 07/11/22 09:34 Review of Systems Review of Systems: CONSTITUTIONAL: Denies malaise, chills, sweats, or fever. CARDIOVASCULAR: Denies chest pain, palpitations, or edema. RESPIRATORY: Denies cough or dyspnea. GASTROINTESTINAL: Denies abdominal pain, nausea, vomiting, diarrhea GENITOURINARY: Reports dysuria, frequency, urgency, suprapubic pressure. Denies flank pain or hematuria. SKIN: Denies rash or itching. MUSCULOSKELETAL: Denies back pain or myalgia. All systems reviewed & are unremarkable except as noted in HPI and below PMFSH Past Medical History Medical History Anemia Depression History of adverse reaction to anesthesia Nausea History of postoperative complication of surgical procedure Hysterectomy Hypertension Morbid obesity with BMI of 40.0-44.9, adult JODIE (obstructive sleep apnea) Sleep apnea Uterine mass Surgical History Surgical History H/O eye surgery H/O tubal ligation 2004 History of endometrial ablation History of facial surgery Cheek surgery History of partial hysterectomy Right ovary and uterus. Family History Family History Father Malignant neoplasm of prostate Bradycardia Mother Carcinoma of colon Hypertension Social History Social History Smoking status: Never smoker Second hand tobacco smoke exposure: Yes ( quit over 10 years ago) Alcohol intake: current Drinks per week: 4 Substance use: never Substance use type: does not use Gender identity (if verbalized by the patient): Female Spiritual care concerns: No Comments At time of signature, agree with nursing past medical, surgical, social and family history. There is no relevant family history pertinent to the presenting complaint Exam Narrative: GENERAL: Well-appearing, well-nourished, and in no acute distress. HEAD: Normocephalic. EYES: PERRLA, conjunctivae clear. NECK: Supple. No lymphadenopathy CHEST: Clear to auscultation. No respiratory distress. HEART: Regular rate and rhythm. ABDOMEN: Soft, nontender upon palpation, nondistended, normal active bowel sounds, no palpable or pulsatile masses, no guarding. No CVA tenderness SKIN: Warm, dry, no rash. NEURO: Alert and oriented x3. PSYCH: Normal mood and affect Course Course Emergency Course: Patient is aware of diagnosis, understands and agrees to treatment plan. Anticipatory guidance given. Patient agrees to follow-up as directed and is aware of reasons to seek care at the emergency department. Portions of this record may have been created with voice recognition software Level of Care: Express Care Visit Vital Signs Vital signs: Reviewed. MDM - Female Genitourinary MDM Narrative Medical decision making narrative: Exam findings and UA show no acute concerns or changes; patient is non-toxic appearing and is in no distress. Patient is approp
== END 2022-07-24 12:14 | disposition home or self-care (01) ==
PROVIDERS: Emergency Provider Nurse Practitioner; PCP Clinical Nurse Specialist
DX: N39.0 Urinary tract infection, site not specified (principal); I10 Essential (primary) hypertension; E66.01 Morbid (severe) obesity due to excess calories; G47.33 Obstructive sleep apnea (adult) (pediatric); Z90.711 Acquired absence of uterus with remaining cervical stump
CPT/HCPCS: 81003; 87077; 87086; 87186; 99213; G0463

== ENCOUNTER 2022-11-15 09:24 | Outpatient (CLI) | payer OTHER, SELFPAY ==
[2022-11-15 13:41] LABS: Kit Draw Collected
== END 2022-11-15 09:25 | disposition home or self-care (01) ==
LOC: ANHGOSHLAB 09:25
PROVIDERS: PCP Internal Medicine; Visit Provider Clinical Nurse Specialist
DX: D50.9 Iron deficiency anemia, unspecified (principal)
CPT/HCPCS: 36415

== ENCOUNTER 2023-09-20 10:15 | Outpatient (CLI) | payer BC, SELFPAY ==
--- NOTE | ~2023-09-20 | MM_ITS ---
EXAMINATION: MM screening debbie BI w sarah HISTORY: Screening mammogram TECHNIQUE: Craniocaudal and mediolateral oblique 3-D tomosynthesis images were obtained and synthetic 2-D images were generated. CAD analysis was submitted and interpreted. COMPARISON: No prior mammogram is available for comparison at this institution. BREAST PARENCHYMAL COMPOSITION: The breasts are almost entirely fatty. FINDINGS: There is no evidence of suspicious mass, calcification, or architectural distortion to sugg est malignancy in either breast. There has been no suspicious interval change. IMPRESSION: 1. No mammographic evidence of malignancy. 2. Recommend routine screening mammography in one year. BI-RADS Category 1: Negative Reviewed, dictated and finalized at location [facility]
== END 2023-09-20 10:16 | disposition home or self-care (01) ==
PROVIDERS: PCP Internal Medicine; Visit Provider Clinical Nurse Specialist
DX: Z12.31 Encounter for screening mammogram for malignant neoplasm of breast (principal)
CPT/HCPCS: 77063; 77067

== ENCOUNTER 2024-02-07 14:07 | Outpatient (CLI) | payer BC, SELFPAY ==
[2024-02-07 14:28] LABS: Basophils Absolute Auto 0.1 K/mm3 (0.0-0.1); Basophils Percent Auto 0.5 % (0.2-1.2); Eosinophils Absolute Auto 0.2 K/mm3 (0-0.3); Eosinophils Percent Auto 2.5 % (0-4.4); Hemoglobin 11.9 g/dL (12.0-15.0); Immature Granulocyte Absolute 0.04 K/mm3 (0.00-0.031); Immature Granulocyte Percent A 0.4 % (0-0.5); Lymphocytes Absolute Auto 2.84 K/mm3 (0.9-3.2); Lymphocytes Percent Auto 30.6 % (18.3-44.2); Mean Corpuscular HGB Conc 33.1 g/dl (32-36); Mean Corpuscular Hemoglobin 29.8 pg (26-34); Mean Corpuscular Volume 90.2 fl (80-100); Mean Platelet Volume 9.2 fl (7.4-10.4); Monocytes Absolute Auto 0.6 K/mm3 (0.1-0.6); Monocytes Percent Auto 6.3 % (2.6-8.5); Neutrophils Absolute Auto 5.5 K/mm3 (1.3-6.7); Neutrophils Percent Auto 59.7 % (45.5-73.1); Platelet Count Result 319 k/mm3 (150-375); Red Blood Count 3.99 M/mm3 (4.2-5.4); Red Cell Distribution Width 12.8 % (11.5-14.5); White Blood Count 9.3 K/mm3 (4.5-10.0)
[2024-02-07 16:32] LABS: Iron 198 ug/dL (37-170)
[2024-02-07 16:40] LABS: Alanine Aminotransferase 19 U/L (6-35); Albumin Level 4.6 g/dL (3.5-5.1); Alkaline Phosphatase 75 U/L (38-126); Anion Gap 9 mmol/L (4-12); Aspartate Amino Transferase 24 U/L (14-36); Bilirubin,Total 0.6 mg/dL (0.2-1.3); Blood Urea Nitrogen 18 mg/dL (7-17); Calcium 9.4 mg/dL (8.4-10.2); Carbon Dioxide 27 mmol/L (22-30); Chloride 103 mmol/L (98-107); Estimated Glomerular Filt Rate > 60; Glucose 97 mg/dL (65-110); Potassium 3.1 mmol/L (3.4-5.0); Sodium 139 mmol/L (137-145)
[2024-02-07 16:43] LABS: Percent Iron Saturation 49 % (20-50)
[2024-02-07 17:11] LABS: Ferritin 8.21 ng/mL (11.1-264)
[2024-02-07 17:48] LABS: Folic Acid 12.7 ng/mL (2.76->20)
[2024-02-13 13:23] LABS: Soluble Transferrin Receptor 1.27 mg/L (0.76-1.76)
== END 2024-02-07 14:08 | disposition home or self-care (01) ==
LOC: ANHLAB 14:09
PROVIDERS: PCP Internal Medicine; Visit Provider Internal Medicine Hematology & Oncology
DX: D64.9 Anemia, unspecified (principal)
CPT/HCPCS: 36415; 80053; 82607; 82728; 82746; 83540; 83550; 84238; 85025